=== PATIENT | female | born 1960 | race Native Hawaiian/Other Pacific Islander ===

== ENCOUNTER 2022-02-21 13:27 | Emergency (ER) | payer OTHER ==
--- OUTSIDE RECORDS SUMMARY | 2022-02-21 13:39 | EXTERNAL MEDICAL SUMMARY RPT | Continuity of Care Document ---
:1960 Author Organization [facility] Address [address] [place] [address] Phone Allergies and Intolerances date description facility type (no date) Formerly named [facility] (unknown) (no date) lisinopril [facility] (unknown) Encounters No information. Functional Status No information. Immunizations No information. Medications No information. Problems No information. Procedures No information. Results/Labs test date author facility value unit interpret ation Result panel 1 (unknown) (no (unknown) (unknown) (no value) (units (unk nown) date) unknown) (unknown) (no (unknown) (unknown) COVID-19 (units (u nknown) date) unknown) (unknown) (no (unknown) (unknown) 01/22/22 (units (unkno wn) date) unknown) (unknown) (no (unknown) (unknown) Age/Sex: 61 / F (units (unknown) date) Date of Service: unknown) (unknown) (no (unknown) (unknown) [place], [place] (units ( unknown) date) [id number] unknown) (unknown) (no (unknown) (unknown) Attending Dr: (units ( unknown) date) Too Taylor MD unknown) (unknown) (no (unknown) (unknown) : 1960 (units (unknown) date) Acct:[id number] unknown) (unknown) (no (unknown) (unknown) Dept at (units (unkno wn) date) . unknown) (unknown) (no (unknown) (unknown) Documented By: (units (unknown) date) Too Taylor MD unknown) 01/22/22 1135 (unknown) (no (unknown) (unknown) Draft (units (unkno wn) date) unknown) (unknown) (no (unknown) (unknown) Evaluation/Scree (units (unknown) date) michael for possible unknown) COVID-19 completed?: Yes- COVID-19 CPT (unknown) (no (unknown) (unknown) Intake Note: (units (u nknown) date) unknown) (unknown) (no (unknown) (unknown) Intake performed (units (unknown) date) by: Pete Barker unknown) (unknown) (no (unknown) (unknown) Intake (units (unkno wn) date) unknown) (unknown) (no (unknown) (unknown) Intake- Clincial (units (unknown) date) Staff unknown) (unknown) (no (unknown) (unknown) [facility] (units (unknown) date) unknown) (unknown) (no (unknown) (unknown) Loc: [facility] (units (unkno wn) date) unknown) (unknown) (no (unknown) (unknown) [phone] (units (unk nown) date) unknown) (unknown) (no (unknown) (unknown) Note (units (unkno wn) date) unknown) (unknown) (no (unknown) (unknown) Nurse Office (units (u nknown) date) Visit unknown) (unknown) (no (unknown) (unknown) Patient: (units (unkno wn) date) Ashley Del Rosario unknown) D MR#: (unknown) (no (unknown) (unknown) Pt came in for a (units (unknown) date) pre procedure unknown) covid test. Denied any covid symptoms. Explained (unknown) (no (unknown) (unknown) Reason For Visit (units (unknown) date) unknown) (unknown) (no (unknown) (unknown) Signed By: (units (unk nown) date) unknown) (unknown) (no (unknown) (unknown) This note may (units ( unknown) date) have been all or unknown) partially generated using voice recognition (unknown) (no (unknown) (unknown) Visit Reasons: (units (unknown) date) COVID/ WWMG unknown) (unknown) (no (unknown) (unknown) have occurred. (units (unknown) date) If there are any unknown) questions, please contact the Medical Records (unknown) (no (unknown) (unknown) may occur. (units (unk nown) date) Occasional unknown) wrong-word or 'sound-alike' substitutions may have (unknown) (no (unknown) (unknown) occurred due to (units (unknown) date) the inherent unknown) limitations of voice recognition software. Please (unknown) (no (unknown) (unknown) read the note (units ( unknown) date) carefully and unknown) recognize, using context, where these substitutions (unknown) (no (unknown) (unknown) software. (units (unkn own) date) Although every unknown) effort is made to edit content, education paraprofessional errors (unknown) (no (unknown) (unknown) test to pt. (units (un known) date) Tolerated covid unknown) test well. Result panel 2 (unknown) (no (unknown) (unknown) (no value) (units (unk nown) date) unknown) (unknown) (no (unknown) (unknown) COVID-19 (units (u nknown) date) unknown) (unknown) (no (unknown) (unknown) 01/22/22 1144 (units ( unknown) date) unknown) (unknown) (no (unknown) (unknown) 01/22/22 (units (unkno wn) date) unknown) (unknown) (no (unknown) (unknown) Age/Sex: 61 / F (units (unknown) date) Date of Service: unknown) (unknown) (no (unknown) (unknown) [facility] (units ( unknown) date) [id number] unknown) (unknown) (no (unknown) (unknown) Attending Dr: (units ( unknown) date) Too Taylor MD unknown) (unknown) (no (unknown) (unknown) : 1960 (units (unknown) date) Acct:[id number] unknown) (unknown) (no (unknown) (unknown) Dept at (units (unkno wn) date) . unknown) (unknown) (no (unknown) (unknown) Documented By: (units (unknown) date) Too Taylor MD unknown) 01/22/22 1135 (unknown) (no (unknown) (unknown) Evaluation/Scree (units (unknown) date) michael for possible unknown) COVID-19 completed?: Yes- COVID-19 CPT (unknown) (no (unknown) (unknown) Intake Note: (units (u nknown) date) unknown) (unknown) (no (unknown) (unknown) Intake performed (units (unknown) date) by: Pete Barker unknown) (unknown) (no (unknown) (unknown) Intake (units (unkno wn) date) unknown) (unknown) (no (unknown) (unknown) Intake- [facility]incial (units (unknown) date) Staff unknown) (unknown) (no (unknown) (unknown) [facility] (units (unknown) date) unknown) (unknown) (no (unknown) (unknown) Loc: [facility] (units (unkno wn) date) unknown) (unknown) (no (unknown) (unknown) [phone] (units (unk nown) date) unknown) (unknown) (no (unknown) (unknown) Note (units (unkno wn) date) unknown) (unknown) (no (unknown) (unknown) Nurse Office (units (u nknown) date) Visit unknown) (unknown) (no (unknown) (unknown) Patient: (units (unkno wn) date) Ashley Del Rosario unknown) D MR#: (unknown) (no (unknown) (unknown) Pt came in for a (units (unknown) date) pre procedure unknown) covid test. Denied any covid symptoms. Explained (unknown) (no (unknown) (unknown) Reason For Visit (units (unknown) date) unknown) (unknown) (no (unknown) (unknown) Signed By: (units (unk nown) date) <Electronically unknown) signed by Too Taylor MD> (unknown) (no (unknown) (unknown) Signed (units (unkno wn) date) unknown) (unknown) (no (unknown) (unknown) This note may (units ( unknown) date) have been all or unknown) partially generated using voice recognition (unknown) (no (unknown) (unknown) Visit Reasons: (units (unknown) date) COVID/ WWMG unknown) (unknown) (no (unknown) (unknown) have occurred. (units (unknown) date) If there are any unknown) questions, please contact the Medical Records (unknown) (no (unknown) (unknown) may occur. (units (unk nown) date) Occasional unknown) wrong-word or 'sound-alike' substitutions may have (unknown) (no (unknown) (unknown) occurred due to (units (unknown) date) the inherent unknown) limitations of voice recognition software. Please (unknown) (no (unknown) (unknown) read the note (units ( unknown) date) carefully and unknown) recognize, using context, where these substitutions (unknown) (no (unknown) (unknown) software. (units (unkn own) date) Although every unknown) effort is made to edit content, education paraprofessional errors (unknown) (no (unknown) (unknown) test to pt. (units (un known) date) Tolerated covid unknown) test well. Result panel 3 (unknown) (no date) (unknown) (unknown) Negative (units (unkn own) unknown) (unknown) (no date) (unknown) (unknown) Negative (units (unkn own) unknown) Result panel 4 (unknown) (no date) (unknown) (unknown) (no value) (units 191 39-5 unknown) (unknown) (no date) (unknown) (unknown) (no value) (units 226 33-2 unknown) (unknown) (no date) (unknown) (unknown) (no value) (units 226 34-0 unknown) (unknown) (no date) (unknown) (unknown) (no value) (units 226 36-5 unknown) (unknown) (no date) (unknown) (unknown) (no value) (units 226 37-3 unknown) (unknown) (no date) (unknown) (unknown) (no value) (units 495 60-6 unknown) (unknown) (no date) (unknown) (unknown) (no value) (units 527 97-8 unknown) (unknown) (no date) (unknown) (unknown) (no value) (units (un known) unknown) (unknown) (no date) (unknown) (unknown) (no value) (units (un known) unknown) (unknown) (no date) (unknown) (unknown) (no value) (units (un known) unknown) (unknown) (no date) (unknown) (unknown) (no value) (units (un known) unknown) (unknown) (no date) (unknown) (unknown) (no value) (units (un known) unknown) (unknown) (no date) (unknown) (unknown) (no value) (units (un known) unknown) (unknown) (no date) (unknown) (unknown) (no value) (units (un known) unknown) Result panel 5 (unknown) (no (unknown) (unknown) (no value) (units (unk nown) date) unknown) (unknown) (no (unknown) (unknown) (Synthroid) (units (un known) date) unknown) (unknown) (no (unknown) (unknown) (past 8 hours): (units (unknown) date) unknown) (unknown) (no (unknown) (unknown) 01/23/22 1309 (units ( unknown) date) unknown) (unknown) (no (unknown) (unknown) 01/23/22 (units (unkno wn) date) unknown) (unknown) (no (unknown) (unknown) 11:36 (units (unkno wn) date) unknown) (unknown) (no (unknown) (unknown) Age/Sex: 61 / F (units (unknown) date) unknown) (unknown) (no (unknown) (unknown) Allergies (units (unkn own) date) unknown) (unknown) (no (unknown) (unknown) Allergy/AdvReac (units (unknown) date) Type Severity unknown) Reaction Status Date / Time (unknown) (no (unknown) (unknown) Assessment + (units (u nknown) date) Plan narrative: unknown) (unknown) (no (unknown) (unknown) Assessment + (units (u nknown) date) Plan unknown) (unknown) (no (unknown) (unknown) Awake alert and (units (unknown) date) oriented x3, unknown) pupils equal round reactive to light, oropharynx (unknown) (no (unknown) (unknown) Blood Pressure (units (unknown) date) 113/71 unknown) (unknown) (no (unknown) (unknown) Chief complaint: (units (unknown) date) SCREENING unknown) COLONOSCOPY (unknown) (no (unknown) (unknown) Colon cancer (units (u nknown) date) screening for unknown) colonoscopy (unknown) (no (unknown) (unknown) Critical Care (units ( unknown) date) time: unknown) (unknown) (no (unknown) (unknown) : 1960 (units (unknown) date) Acct:[id number] unknown) (unknown) (no (unknown) (unknown) Date of Service: (units (unknown) date) 01/23/22 unknown) (unknown) (no (unknown) (unknown) Exam Narrative: (units (unknown) date) unknown) (unknown) (no (unknown) (unknown) Exam (units (unkno wn) date) unknown) (unknown) (no (unknown) (unknown) Family + Social (units (unknown) date) History unknown) (unknown) (no (unknown) (unknown) History + (units (unkn own) date) Physical Report unknown) (unknown) (no (unknown) (unknown) History of (units (unk nown) date) Present Illness unknown) (unknown) (no (unknown) (unknown) Home Medications (units (unknown) date) and Allergies unknown) (unknown) (no (unknown) (unknown) Home Medications (units (unknown) date) unknown) (unknown) (no (unknown) (unknown) I spent a total (units (unknown) date) of [] minutes of unknown) critical care time on this patient's care (unknown) (no (unknown) (unknown) [facility] (units (unknown) date) [address] [place] [address] unknown) [place] [address] (unknown) (no (unknown) (unknown) [id number] (units (unk nown) date) unknown) (unknown) (no (unknown) (unknown) Medication (units (unk nown) date) Instructions unknown) Recorded Confirmed Type (unknown) (no (unknown) (unknown) Meds (units (unkno wn) date) unknown) (unknown) (no (unknown) (unknown) Narrative (units (unkn own) date) unknown) (unknown) (no (unknown) (unknown) Narrative: (units (unk nown) date) unknown) (unknown) (no (unknown) (unknown) Negative (units (unkno wn) date) unknown) (unknown) (no (unknown) (unknown) Oxygen Delivery (units (unknown) date) Method Room Air unknown) (unknown) (no (unknown) (unknown) Patient History (units (unknown) date) unknown) (unknown) (no (unknown) (unknown) Patient: (units (unkno wn) date) Ashley Del Rosario unknown) D MR#: (unknown) (no (unknown) (unknown) Provider: (units (unkn own) date) Antonio Olsen unknown) (unknown) (no (unknown) (unknown) Pulse Oximetry (units (unknown) date) 97 unknown) (unknown) (no (unknown) (unknown) Pulse Rate 94 H (units (unknown) date) unknown) (unknown) (no (unknown) (unknown) Respiratory Rate (units (unknown) date) 20 unknown) (unknown) (no (unknown) (unknown) Review of (units (unkn own) date) Systems unknown) (unknown) (no (unknown) (unknown) Signed (units (unkno wn) date) By:<Electronicall unknown) y signed by Antonio Olsen MD> (unknown) (no (unknown) (unknown) Smoking Status (units (unknown) date) Former smoker unknown) (unknown) (no (unknown) (unknown) Social History: (units (unknown) date) unknown) (unknown) (no (unknown) (unknown) Substance Use (units ( unknown) date) Type does not use unknown) (unknown) (no (unknown) (unknown) Temperature 97 F (units (unknown) date) L unknown) (unknown) (no (unknown) (unknown) Time Spent With (units (unknown) date) Patient unknown) (unknown) (no (unknown) (unknown) Tobacco + (units (unkn own) date) Substance use: unknown) (unknown) (no (unknown) (unknown) Vital Signs (units (un known) date) unknown) (unknown) (no (unknown) (unknown) abdomen (units (unkno wn) date) nontender and unknown) nondistended, extremities without edema, no gross (unknown) (no (unknown) (unknown) alcohol intake (units (unknown) date) frequency unknown) holiday/special occasion (unknown) (no (unknown) (unknown) aspirin AdvReac (units (unknown) date) Intermediate unknown) broken Verified 01/23/22 11:27 (unknown) (no (unknown) (unknown) atorvastatin 20 (units (unknown) date) mg tablet 20 mg unknown) 1XD 01/23/22 01/23/22 History (unknown) (no (unknown) (unknown) atorvastatin 20 (units (unknown) date) mg tablet 20 mg unknown) PO DAILY 01/23/22 01/23/22 History (unknown) (no (unknown) (unknown) blood (units (unkno wn) date) unknown) (unknown) (no (unknown) (unknown) bupropion HCl (units ( unknown) date) 150 mg 24 hr unknown) tablet, 150 mg PO 1XD 01/23/22 01/23/22 History (unknown) (no (unknown) (unknown) cetirizine 10 mg (units (unknown) date) tablet 10 mg 1XD unknown) 01/23/22 01/23/22 History (unknown) (no (unknown) (unknown) clear, heart (units (u nknown) date) regular rate and unknown) rhythm, lungs clear to auscultation bilaterally, (unknown) (no (unknown) (unknown) estradiol 1 mg (units (unknown) date) tablet 1 mg 1XD unknown) 01/23/22 01/23/22 History (unknown) (no (unknown) (unknown) extended release (units (unknown) date) unknown) (unknown) (no (unknown) (unknown) gold AdvReac (units (u nknown) date) Intermediate Rash unknown) Uncoded 01/23/22 11:27 (unknown) (no (unknown) (unknown) household (units (unkn own) date) members spouse unknown) (unknown) (no (unknown) (unknown) levothyroxine 50 (units (unknown) date) mcg tablet 50 mcg unknown) 1XD 01/23/22 01/23/22 History (unknown) (no (unknown) (unknown) levothyroxine 50 (units (unknown) date) mcg tablet 50 mcg unknown) PO DAILY 01/23/22 01/23/22 History (unknown) (no (unknown) (unknown) lisinopril (units (unk nown) date) AdvReac unknown) Intermediate Cough Verified 01/23/22 11:27 (unknown) (no (unknown) (unknown) losartan 100 25 (units (unknown) date) tab 1XD 01/23/22 unknown) 01/23/22 History (unknown) (no (unknown) (unknown) meloxicam 15 mg (units (unknown) date) tablet 15 mg 1XD unknown) 01/23/22 01/23/22 History (unknown) (no (unknown) (unknown) metformin 500 mg (units (unknown) date) tablet,extended unknown) 1,000 mg PO 1-2XD 01/23/22 01/23/22 History (unknown) (no (unknown) (unknown) mg-hydrochloroth (units (unknown) date) iazide 25 mg unknown) tablet (unknown) (no (unknown) (unknown) neurologic (units (unk nown) date) deficits noted unknown) (unknown) (no (unknown) (unknown) omeprazole 20 mg (units (unknown) date) capsule,delayed unknown) 20 mg PO DAILY 01/23/22 01/23/22 History (unknown) (no (unknown) (unknown) release 24 hr (units ( unknown) date) unknown) (unknown) (no (unknown) (unknown) release (units (unkno wn) date) unknown) (unknown) (no (unknown) (unknown) today; this time (units (unknown) date) is exclusive of unknown) procedural time. (unknown) (no (unknown) (unknown) vessels (units (unkno wn) date) unknown) Result panel 6 (unknown) (no (unknown) (unknown) (no value) (units (unk nown) date) unknown) (unknown) (no (unknown) (unknown) (units (unknown) date) unknown) (unknown) (no (unknown) (unknown) Performed at: (units (unknown) date) 01 unknown) (unknown) (no (unknown) (unknown) . 01 (units (unkno wn) date) unknown) (unknown) (no (unknown) (unknown) . (units (unkno wn) date) unknown) (unknown) (no (unknown) (unknown) /CPE 01/24/2022 (units (unknown) date) 0650 Local unknown) (unknown) (no (unknown) (unknown) 1.0 x 0.5 x 0.1 (units (unknown) date) cm submitted unknown) entirely in 1 cassette(s) (unknown) (no (unknown) (unknown) [facility] [facility] (units (unknown) date) unknown) (unknown) (no (unknown) (unknown) [address] (units (unknown) date) [address], unknown) [place], [place] [id number] (unknown) (no (unknown) (unknown) [id number] (units (unknown) date) unknown) (unknown) (no (unknown) (unknown) A. Cecum, Polyp, (units (unknown) date) Biopsy: unknown) (unknown) (no (unknown) (unknown) [place], [place] (units ( unknown) date) [address] unknown) (unknown) (no (unknown) (unknown) B. Sigmoid (units (unk nown) date) Colon, Polyp, unknown) Biopsy: (unknown) (no (unknown) (unknown) CPT . (units (unkno wn) date) unknown) (unknown) (no (unknown) (unknown) Clinical (units (unkno wn) date) history: . unknown) (unknown) (no (unknown) (unknown) Collection Date: (units (unknown) date) 01/23/22 unknown) (unknown) (no (unknown) (unknown) D12.2, D12.5 (units (u nknown) date) unknown) (unknown) (no (unknown) (unknown) DD/ (units (unknown) date) 0000 unknown) (unknown) (no (unknown) (unknown) Date of : (units (unknown) date) 1960 Admit unknown) Date: 01/23/22 (unknown) (no (unknown) (unknown) Diagnosis: (units (unk nown) date) unknown) (unknown) (no (unknown) (unknown) Dictated By: (units (u nknown) date) Olivia Sommer unknown) (unknown) (no (unknown) (unknown) Electronically (units (unknown) date) signed: . unknown) (unknown) (no (unknown) (unknown) Gross (units (unkno wn) date) description: . unknown) (unknown) (no (unknown) (unknown) Hyperplastic (units (u nknown) date) polyp. unknown) (unknown) (no (unknown) (unknown) [facility] (units (unknown) date) unknown) (unknown) (no (unknown) (unknown) Olivia Ayers (units (unk nown) date) MD Ros, unknown) Pathologist (unknown) (no (unknown) (unknown) [facility] Accession (units ( unknown) date) Number: unknown) [id number] (unknown) (no (unknown) (unknown) [facility] (units (unknown) date) [place] [facility] unknown) (unknown) (no (unknown) (unknown) MD Wolf (units (unkn own) date) Jaden CHRISTIE Phone: unknown) [phone] (unknown) (no (unknown) (unknown) (units (unknown) date) Dictating Dr: unknown) Olivia Sommer MD (unknown) (no (unknown) (unknown) MRV 01/25/2022 (units (unknown) date) 1124 Local unknown) (unknown) (no (unknown) (unknown) Material (units (unkno wn) date) submitted: . unknown) (unknown) (no (unknown) (unknown) I- [id number] (units (unknown) date) unknown) (unknown) (no (unknown) (unknown) Ordering (units (unkno wn) date) Physician: unknown) Antonio Olsen MD (unknown) (no (unknown) (unknown) PART A: colon - (units (unknown) date) 'CECAL POLYP' unknown) (unknown) (no (unknown) (unknown) PART B: colon - (units (unknown) date) 'SIGMOID COLON unknown) POLYP' (unknown) (no (unknown) (unknown) Part A: 'CECAL (units (unknown) date) POLYP': unknown) (unknown) (no (unknown) (unknown) Part B: 'SIGMOID (units (unknown) date) COLON POLYP': unknown) (unknown) (no (unknown) (unknown) Pathologist (units (un known) date) provided ICD-10: unknown) (unknown) (no (unknown) (unknown) Pathology (units (unkn own) date) Diagnostic Report unknown) (unknown) (no (unknown) (unknown) Patient name: (units ( unknown) date) Ashley Del Rosario unknown) D (unknown) (no (unknown) (unknown) Received in (units (un known) date) formalin are unknown) multiple fragment(s) of parra, soft tissue (unknown) (no (unknown) (unknown) Received in (units (un known) date) formalin is 1 unknown) fragment(s) of parra, soft tissue measuring (unknown) (no (unknown) (unknown) SCREENING (units (unkn own) date) COLONOSCOPY unknown) (unknown) (no (unknown) (unknown) Sessile serrated (units (unknown) date) adenoma. unknown) (unknown) (no (unknown) (unknown) Signed By: (units (unk nown) date) 01/25/22 1507 unknown) (unknown) (no (unknown) (unknown) Signed (units (unkno wn) date) unknown) (unknown) (no (unknown) (unknown) TD/TT: 01/25/22 (units (unknown) date) 1507 unknown) (unknown) (no (unknown) (unknown) Tubular adenoma. (units (unknown) date) unknown) (unknown) (no (unknown) (unknown) cassette(s) (units (un known) date) unknown) (unknown) (no (unknown) (unknown) measuring 2.0 x (units (unknown) date) 0.7 x 0.1 cm in unknown) aggregate submitted entirely in 1 Result panel 7 (unknown) (no (unknown) (unknown) (no value) (units (unk nown) date) unknown) (unknown) (no (unknown) (unknown) 01/23/22 1349 (units ( unknown) date) unknown) (unknown) (no (unknown) (unknown) 1 of 2 polyps (units ( unknown) date) were retrieved unknown) (unknown) (no (unknown) (unknown) A 4 mm sessile (units (unknown) date) polyp was removed unknown) from the cecum using cold snare and retrieved. (unknown) (no (unknown) (unknown) Age/Sex: 61 / F (units (unknown) date) unknown) (unknown) (no (unknown) (unknown) Colon cancer (units (u nknown) date) screening. unknown) Personal history of colon polyps. Family history of (unknown) (no (unknown) (unknown) Colonoscopy Note (units (unknown) date) unknown) (unknown) (no (unknown) (unknown) Colonoscopy with (units (unknown) date) snare polypectomy unknown) (unknown) (no (unknown) (unknown) Complications: (units (unknown) date) other (EBL unknown) minimal. No complications) (unknown) (no (unknown) (unknown) : 1960 (units (unknown) date) Acct:[id number] unknown) (unknown) (no (unknown) (unknown) JESÚS and perianal (units (unknown) date) examinations were unknown) unremarkable. Retroflexion in the rectum was (unknown) (no (unknown) (unknown) Date of Service: (units (unknown) date) 01/23/22 unknown) (unknown) (no (unknown) (unknown) Date of (units (unkno wn) date) procedure: unknown) 01/23/22 (unknown) (no (unknown) (unknown) Discharge home (units (unknown) date) with escort unknown) (unknown) (no (unknown) (unknown) Follow-up (units (unkn own) date) pathology results unknown) (unknown) (no (unknown) (unknown) Impression: (units (un known) date) unknown) (unknown) (no (unknown) (unknown) Indications: (units (u nknown) date) unknown) (unknown) (no (unknown) (unknown) [facility] (units (unknown) date) [address] [place] [address] Street unknown) [place] [address] (unknown) (no (unknown) (unknown) [id number] (units (unk nown) date) unknown) (unknown) (no (unknown) (unknown) Operative (units (unkn own) date) Date/Time/Diagnos unknown) es (unknown) (no (unknown) (unknown) Patient has a (units ( unknown) date) contact number unknown) available for emergencies. The signs and symptoms (unknown) (no (unknown) (unknown) Patient: (units (unkno wn) date) Ashley Del Rosario unknown) D MR#: (unknown) (no (unknown) (unknown) Plan for (units (unkno wn) date) aftercare: unknown) (unknown) (no (unknown) (unknown) Post-procedure (units (unknown) date) unknown) (unknown) (no (unknown) (unknown) Prior to the (units (u nknown) date) procedure, unknown) history and physical was performed, and patient (unknown) (no (unknown) (unknown) Procedure + (units (un known) date) Clinicians unknown) (unknown) (no (unknown) (unknown) Procedure Notes (units (unknown) date) unknown) (unknown) (no (unknown) (unknown) Procedure in (units (u nknown) date) detail: unknown) (unknown) (no (unknown) (unknown) Provider: (units (unkn own) date) Antonio Olsen unknown) (unknown) (no (unknown) (unknown) Repeat (units (unkno wn) date) colonoscopy at a unknown) date to be determined based on pathology results (unknown) (no (unknown) (unknown) Resume home (units (un known) date) medications unknown) (unknown) (no (unknown) (unknown) Resume previous (units (unknown) date) diet unknown) (unknown) (no (unknown) (unknown) Signed (units (unkno wn) date) By:<Electronicall unknown) y signed by Antonio Olsen MD> (unknown) (no (unknown) (unknown) Study performed: (units (unknown) date) unknown) (unknown) (no (unknown) (unknown) Three 4 mm (units (unk nown) date) polyps removed unknown) from the sigmoid colon and cecum, partial retrieval (unknown) (no (unknown) (unknown) Two 4 mm sessile (units (unknown) date) polyps were unknown) removed from the sigmoid colon using a cold snare, (unknown) (no (unknown) (unknown) and oxygen (units (unk nown) date) saturations were unknown) monitored continuously. The colonoscope was (unknown) (no (unknown) (unknown) appendiceal (units (un known) date) orifice and unknown) ileocecal valve. The patient tolerated the procedure (unknown) (no (unknown) (unknown) assessment was (units (unknown) date) reviewed. Patient unknown) identification and proposed procedure were (unknown) (no (unknown) (unknown) colon polyps. (units ( unknown) date) Last colonoscopy unknown) was done in 2012. (unknown) (no (unknown) (unknown) direct vision. (units (unknown) date) Throughout the unknown) procedure, the patient's blood pressure, pulse, (unknown) (no (unknown) (unknown) introduced (units (unk nown) date) through the anus unknown) and advanced to the cecum as identified by the (unknown) (no (unknown) (unknown) medications and (units (unknown) date) allergies were unknown) reviewed. Preprocedure nursing history and (unknown) (no (unknown) (unknown) normal (units (unkno wn) date) activities unknown) tomorrow. Written discharge instructions were provided to the (unknown) (no (unknown) (unknown) obtained (units (unkno wn) date) including risks, unknown) benefits, and alternatives, the scope was passed under (unknown) (no (unknown) (unknown) of potential (units (u nknown) date) delayed unknown) complications were discussed with the patient. Return to (unknown) (no (unknown) (unknown) of the patient (units (unknown) date) was reassessed unknown) after the procedure. After informed consent was (unknown) (no (unknown) (unknown) patient. (units (unkno wn) date) unknown) (unknown) (no (unknown) (unknown) unrevealing. (units (u nknown) date) unknown) (unknown) (no (unknown) (unknown) verified by the (units (unknown) date) physician and unknown) nurse in the procedure room. The physical status (unknown) (no (unknown) (unknown) well. Bowel prep (units (unknown) date) was deemed unknown) adequate to detect polyps greater than 5 mm. Social History No information. Vital Signs No information.
[2022-02-21 13:48] LABS: BASOPHILS # (AUTO) 0.1 10^3/uL (0.0-0.1); BASOPHILS % (AUTO) 0.6 %; EOSINOPHILS # (AUTO) 0.7 10^3/uL (0.0-0.7); EOSINOPHILS % (AUTO) 5.7 %; HCT - HEMATOCRIT 24.1 % (37.0-47.0); HGB - HEMOGLOBIN 8.1 g/dL (12.0-16.0); LYMPHOCYTES # (AUTO) 1.2 10^3/uL (1.5-3.5); LYMPHOCYTES % (AUTO) 9.9 %; MEAN CORPUSCULAR HEMOGLOBIN 29.9 pg (27.0-31.0); MEAN CORPUSCULAR HGB CONC 33.6 g/dL (32.0-36.0); MEAN CORPUSCULAR VOLUME 88.9 fL (81.0-99.0); MEAN PLATELET VOLUME 7.7 fL (7.9-10.8); MONOCYTES % (AUTO) 8.2 %; NEUTROPHILS # (AUTO) 8.8 10^3/uL (1.5-6.6); NEUTROPHILS % (AUTO) 74.7 %; PLT - PLATELET COUNT 593 10^3/uL (130-450); RED BLOOD COUNT 2.71 10^6/uL (4.20-5.40); WHITE BLOOD COUNT 11.7 x10^3/uL (4.8-10.8)
--- NOTE | 2022-02-21 13:55 | XRAY Report ---
PROCEDURE: Chest 1 View X-Ray INDICATIONS: Chest Pain TECHNIQUE: One view of the chest was acquired. COMPARISON: None FINDINGS: Surgical changes and devices: None. Lungs and pleura: No pleural effusions or pneumothorax. No evidence of pneumonia nor edema. 18 mm ro unded density projects over the right lung base. Mediastinum: Mediastinal contours appear normal. Heart size is normal. Bones and chest wall: No suspicious bony lesions. Overlying soft tissues appear unremarkable. IMPRESSION: 1. No acute process. 2. Nodular density projecting over the right lung base. Further assessment with IV contrast-enhanced CT is recommended. Reviewed by: Gume Bruno MD on 02/21/2022 1:53 PM PDT Approved by: Gume Bruno MD on 02/21/2022 1:53 PM PDT Station ID: [id number]
[2022-02-21 14:10] LABS: ALBUMIN 4.2 g/dL (3.2-5.5); ALBUMIN/GLOBULIN RATIO 1.3 (1.0-2.2); BILIRUBIN,TOTAL 0.6 mg/dL (0.2-1.0); CALCIUM 9.9 mg/dL (8.5-10.3); CREATININE 1.3 mg/dL (0.4-1.0); POTASSIUM 3.4 mmol/L (3.5-5.0); TOTAL PROTEIN 7.5 g/dL (6.7-8.2)
[2022-02-21] MEDS: SODIUM CHLORIDE 0.9% 1,000 ML IV STA (14:32)
--- NOTE | 2022-02-21 14:39 | ED Physician Documentation ---
History of Present Illness - Stated complaint Stated Complaint: RAPID HR/TROUBLE BREATHING - Chief complaint Chief Complaint: Cardiac - Additonal information Additional information: 61-year-old female presents to the emergency department for evaluation of exertional dyspnea and near syncope that has been ongoing for about 2 weeks. She often reports that she has to stop and rest. She has to sit for a long time before she recovers her breath back. She also began having some left-sided chest pain with radiation to her left arm today. She also is endorsing a headache and neck pain. No fevers. She is a former smoker quitting about 5 years ago. She reports that she had a colonoscopy on 23 January that showed some precancerous cells. Past medical history most significant for hypertension, diabetes and hypothyroid. Meds: Statin, metformin, estradiol, Synthroid, hydrochlorothiazide, losartan, Zyrtec, Prilosec Review of Systems Constitutional: denies: Fever, Chills Ears: reports: Reviewed and negative Throat: reports: Reviewed and negative Cardiac: reports: Chest pain / pressure, Palpitations. denies: Pedal edema Respiratory: reports: Reviewed and negative GI: reports: Reviewed and negative : reports: Reviewed and negative Skin: reports: Reviewed and negative Musculoskeletal: reports: Reviewed and negative Neurologic: reports: Near syncope Psychiatric: reports: Reviewed and negative PD PAST MEDICAL HISTORY - Past Medical History Cardiovascular: Hypertension, High cholesterol, Coronary artery disease Endocrine/Autoimmune: Type 2 diabetes GI: GERD : None Psych: Depression, Anxiety Musculoskeletal: Osteoarthritis - Past Surgical History /CLINICAL APPLICATION CONSULTANT: Hysterectomy - Present Medications Home Medications: Ambulatory Orders Medication Instructions Recorded Confirmed Atorvastatin Calcium [Lipitor] 20 mg PO 10/28/12 10/28/12 Cetirizine HCl [Zyrtec] 10 mg PO 10/28/12 10/28/12 Exenatide [Byetta] 5 mcg SQ 10/28/12 10/28/12 Fenofibrate Nanocrystallized 145 mg PO 10/28/12 10/28/12 [Tricor] Hydrochlorothiazide 25 mg PO 10/28/12 10/28/12 Losartan Potassium [Cozaar] 50 mg PO 10/28/12 10/28/12 Meloxicam [Mobic] 15 mg PO DAILY 10/28/12 10/28/12 Metformin HCl [Metformin HCl ER] 500 mg PO 10/28/12 10/28/12 Omeprazole [PriLOSEC] 20 mg PO DAILY 10/28/12 10/28/12 buPROPion [Wellbutrin Xl] 150 mg PO 10/28/12 10/28/12 estradioL [Estrace] 1 mg PO DAILY 10/28/12 10/28/12 raNITIdine HCl [Zantac] 150 PO PRN 10/28/12 10/28/12 Losartan [Cozaar] 50 mg PO DAILY 10/29/12 10/29/12 - Allergies Allergies/Adverse Reactions: Allergies Allergy/AdvReac Type Severity Reaction Status Date / Time Salicylates * [Salicylates] Allergy Unknown capillaries Verified 10/28/12 14:56 burst lisinopril AdvReac Mild cough Verified 10/28/12 14:54 PD ED PE NORMAL - General General: Alert and oriented X 3, No acute distress, Well developed/nourished - HEENT HEENT: Atraumatic, Moist mucous membranes, Pharynx benign - Neck Neck: Supple, no meningeal sign - Cardiac Cardiac: RRR (Mild tachycardia at rest heart rate 108), No murmur, No gallop, Strong equal pulses - Respiratory Respiratory: No respiratory distress, Clear bilaterally - Abdomen Abdomen: Normal bowel sounds, Soft, Non tender - Rectal Rectal: Other (Chiquita melena on digital rectal exam) - Back Back: No CVA TTP, No spinal TTP - Derm Derm: Normal color, Warm and dry - Extremities Extremities: No deformity, No tenderness to palpate, Normal ROM s pain - Neuro Neuro: Alert and oriented X 3, dramatic reader 2-12 intact Eye Opening: Spontaneous Motor: Obeys Commands Verbal: Oriented GCS Score: 15 Results - Vitals Vitals: Vital Signs - 24 hr 02/21/22 02/21/22 02/21/22 13:46 14:21 14:30 Temperature 37.8 C Heart Rate 108 H 109 H 108 H Heart Rate [ Sitting] Heart Rate [ Standing] Heart Rate [ Supine] Respiratory 30 H 18 18 Rate Blood Pressure 105/76 121/67 99/74 Blood Pressure [Sitting] Blood Pressure [Standing] Blood Pressure [Supine] O2 Saturation 95 100 99 02/21/22 02/21/22 02/21/22 15:00 15:23 16:30 Temperature Heart Rate 106 H 104 H Heart Rate [ 105 H Sitting] Heart Rate [ 112 H Standing] Heart Rate [ 104 H Supine] Respiratory 12 18 Rate Blood Pressure 116/69 98/67 Blood Pressure 112/69 [Sitting] Blood Pressure 121/70 [Standing] Blood Pressure 114/68 [Supine] O2 Saturation 100 100 Oxygen O2 Source Room air - EKG (time done) 1333 Rate: Rate (enter#) (106) Rhythm: Sinus tachycardia [place]: Normal Intervals: Normal [place]. No: Prolonged QT QRS: Poor R wave progression Ischemia: Q waves (inferior lead) Compare to prior EKG: Old EKG unavailable Computer interpretation: Agree with computer - Labs Labs: Microbiology 02/21/22 15:48 Occult Blood - Final Stool Laboratory Tests 02/21/22 02/21/22 02/21/22 13:41 13:44 13:44 WBC 11.7 H RBC 2.71 L Hgb 8.1 L Hct 24.1 L MCV 88.9 MCH 29.9 MCHC 33.6 RDW 12.0 Plt Count 593 H MPV 7.7 L Neut # (Auto) 8.8 H Lymph # (Auto) 1.2 L [place] # (Auto) 1.0 Eos # (Auto) 0.7 Baso # (Auto) 0.1 Absolute Nucleated RBC 0.00 Nucleated RBC % 0.0 Sodium 134 L Potassium 3.4 L Chloride 96 L Carbon Dioxide 21 Anion Gap 17.0 H BUN 27 H Creatinine 1.3 H Estimated GFR (MDRD) 42 L Glucose 179 H Calcium 9.9 Total Bilirubin 0.6 AST 20 ALT 15 Alkaline Phosphatase 51 Troponin I High Sens B-Natriuretic Peptide Total Protein 7.5 Albumin 4.2 Globulin 3.3 Albumin/Globulin Ratio 1.3 Lipase 28 TSH 3.20 Thyroxine (T4) 13.84 H 02/21/22 02/21/22 13:44 13:44 WBC RBC Hgb Hct MCV MCH MCHC RDW Plt Count MPV Neut # (Auto) Lymph # (Auto) [place] # (Auto) Eos # (Auto) Baso # (Auto) Absolute Nucleated RBC Nucleated RBC % Sodium Potassium Chloride Carbon Dioxide Anion Gap BUN Creatinine Estimated GFR (MDRD) Glucose Calcium Total Bilirubin AST ALT Alkaline Phosphatase Troponin I High Sens 9.3 B-Natriuretic Peptide < 5 L Total Protein Albumin Globulin Albumin/Globulin Ratio Lipase TSH Thyroxine (T4) - Rads (name of study) cxr Radiology: Final report received (No acute process. Nodular density projecting over the right lung base further assessment with IV contrast CT is recommended) CT head Radiology: Final report received (No acute intracranial process. Marked enlargement of partially visualized parotid glands bilaterally. No focal fluid collections are identified. Recommend CT neck with contrast) CT chest Radiology: Final report received (Multiple bilateral pulmonary nodules including extensive mediastinal and supraclavicular adenopathy highly suspicious for malignancy. Slight deformity of the left lateral 10th rib possibly related to old trauma however given above findings close interval follow-up recommended.) Ct abd Radiology: Final report received (Tiny 3 mm hypodensity in right hepatic lobe too small to characterize. Hepatic steatosis. Multiple well circumcised hypodensities in bilateral renal parenchyma likely represent cysts. No hydronephrosis. No bowel obstruction or abnormal wall thickening. ) PD MEDICAL DECISION MAKING - ED course Complexity details: reviewed results, re-evaluated patient, considered differential, d/w patient ED course: 61-year-old female presents emergency department for evaluation of worsening shortness of air and dyspnea over the last 3 weeks. Reports multiple episodes of near syncope. Also reporting melena. She does have a history of former tobacco use. In the emergency department initial CBC showed a marked anemia with a hemoglobin of 8. No recent hemoglobin for comparison. However I stool guaiac was positive for blood as well as chiquita melena. The initial x-ray of the chest suggested a nodule in the right lower lobe of the lung. Given the melena and concern for malignancy a CT of the chest abdomen pelvis was completed with contrast. Multiple bilateral pulmonary nodules as well as extensive supraclavicular lymphadenopathy likely representing metastatic disease. CT of the abdomen did show some densities within the liver that were too small to characterize but could also be compatible with early cancer. Here in the emergency department patient was given a liter of fluid. She did not have any orthostatic hypotension. While here in the emergency department she has been hemodynamically stable with mild tachycardia with a resting heart rate of about 108. Given the melena and anemia she likely needs an urgent EGD. We are unable to accommodate that here at [facility] as we have no surgical services through the weekend. I did offer the patient the opportunity to remain in the ER to transfer for 4 EGD imaging though she declined. She does have follow-up scheduled with her primary doctor tomorrow. At that time she will request an urgent EGD referral. We also discussed the importance of emergent referral for hematology and oncology. If at any point her symptoms worsen, she has fainting episodes she will return immediately to the ER. Departure - Departure Disposition: 01 Home, Self Care Clinical Impression: Parotid gland enlargement, Melena, Pulmonary nodules/lesions, multiple Anemia Qualifiers: Anemia type: other cause Other causes of anemia: other cause, not classified Qualified Code(s): D64.89 - Other specified anemias Chronic kidney disease Qualifiers: Chronic kidney disease stage: stage 3 (moderate) Chronic kidney disease stage 3 subtype: unspecified whether 3a or 3b Qualified Code(s): N18.30 - Chronic kidney disease, stage 3 unspecified Comments: Ashley you were seen today in the emergency department because you have been getting short of breath, having chest pain feeling dizzy. You have also reported black stools. Today your hemoglobin is 8. Your stool guaiac is positive. This likely indicates that you have upper stomach or upper intestinal bleeding. You need an emergent EGD in order to further diagnose this problem. The low hemoglobin is the most likely cause of the worsening shortness of air and dizziness over the last few weeks. The CT of your chest unfortunately showed multiple pulmonary nodules as well As enlarged lymph nodes which are concerning for cancer. You need an emergent referral to hematology/oncology. Both your parotid glands were seen to be enlarged on CT. The recommendation is for you to have further evaluation of this with an outpatient CT of your neck with contrast. If at any point you find that your symptoms are worsening, you develop any fainting episodes, have severe chest pain or worsening shortness of air you should come immediately to the ER
[2022-02-21 15:01] LABS: T4 (THYROXINE) 13.84 ug/dL (6.09-12.23)
[2022-02-21 15:05] LABS: THYROID STIMULATING HORMONE 3.2 uIU/mL (0.34-5.60)
--- NOTE | 2022-02-21 16:21 | CT Report ---
PROCEDURE: HEAD WO INDICATIONS: headace TECHNIQUE: Noncontrast 4.5 mm thick angled axial sections acquired from the foramen magnum to the vertex. For r adiation dose reduction, the following was used: automated exposure control, adjustment of mA and/or kV according to patient size. COMPARISON: None. FINDINGS: Image quality: Excellent. CSF spaces: Basal cisterns are patent. No extra-axial fluid collections. Ventricles are normal in size and shape. Brain: No midline shift. No intracranial masses or hemorrhage. Brady-white matter interface is norm al. Skull and face: Calvarium and visualized facial bones are intact, without suspicious lesions. There is incomplete visualization of the parotid glands bilaterally. However, they are markedly enlarged. Sinuses: Visualized sinuses and mastoids are clear. IMPRESSION: Marked enlargement of partially visualized parotid glands bilaterally. No focal fluid collections are identified. CT neck with contrast is recommended for further evaluation. No acute intracranial process. Reviewed by: Sunitha Townsend MD on 02/21/2022 4:19 PM PDT Approved by: Sunitha Townsend MD on 02/21/2022 4:19 PM PDT Station ID: [id number]
--- NOTE | 2022-02-21 16:40 | CT Report ---
PROCEDURE: CHEST W INDICATIONS: RLL DENSITY CONTRAST: IV CONTRAST: Optiray 320 ml: 100 PO CONTRAST: *NO PO CONTRAST TECHNIQUE: After the administration of intravenous contrast, 1 mm axial images were acquired from the pulmonary apices through the posterior costophrenic angles. Axial 5 mm soft tissue kernel reconstructions were performed as well as 8 mm axial MIP and coronal and sagittal 5 mm reformations. For radiation dose reduction, the following was used: automated exposure control, adjustment of mA and/or kV according to patient size. COMPARISON: CT abdomen pelvis 02/21/2022, chest x-ray 02/21/2022 FINDINGS: Image quality: Excellent. Lungs and pleura: No acute air space opacities. No pleural effusions or pneumothorax. Central and peripheral airways are patent and normal in caliber. Left upper lobe nodule, 9 mm series 3 image 81. 5 mm right upper lobe nodule series 3 image 101. Juxt a fissural nodule measuring 7 mm in the right midlung field series 3 image 135. Anterior right middle lobe nodule measuring 5 mm series 3 image 174. Anterior right lower lobe nodule 1.7 cm series 3 imag e 175. Medial right middle lobe nodule 5 mm series 3 image 193. Right lower lobe posterior nodule 7 m m series 3 image 172 as well as adjacent 3 mm nodule on series 3 image 169. 2 mm nodule in the medial right lower lobe series 3 image 181. 3 mm right lower lobe nodule series 3 image 152. Scattered 2 to 5 mm nodules are present in the left lower lobe series 3 images 159 06/26/1967. 7 mm left lower lobe n odule medially series 3 image 137. 5 mm lingular nodule series 3 image 137. 4 mm nodule left upper lo be series 3 image 124. 4 mm left upper lobe nodule series 3 image 118. 6 mm left upper lobe nodule se james 3 image 79. Mediastinum: Heart size is normal. No pericardial effusion. There is extensive mediastinal adenopat hy. A superior anterior right paratracheal low-attenuation lymph node is present measuring 1.2 cm on series 2 image 8. A precarinal lymph node on series 2 image 21, also low attenuation measures 2.5 cm. Subcarinal low-attenuation lymph node is present measuring 2.4 cm on series 2 image 27. Enlarged aor ticopulmonary window lymph nodes are also identified. Or clavicular adenopathy is present, the larges t on the right measuring 2.8 cm on series 2 image 5. Thoracic aorta and central pulmonary arteries ar e normal in size. Esophagus is normal in caliber. No hiatal hernia. Bones and chest wall: There is slight deformity of the lateral left 10th rib. No vertebral body compr ession fractures. No axillary or supraclavicular adenopathy by size criteria. The thyroid is normal in size and there are no incidental findings.. Abdomen: Low-attenuation foci are present within the kidneys bilaterally, the largest on the right m easuring 1.8 cm. Soft tissue nodule in the anterior left abdominal subcutaneous fat is present measur ing 9 mm on series 2 image 59. Visualized upper abdominal solid organs appear normal. Upper abdomina l bowel loops are normal in caliber. IMPRESSION: Multiple bilateral pulmonary nodules including extensive mediastinal and supraclavicular adenopathy h ighly suspicious for malignancy. Slight deformity of the left lateral 10th rib possibly related to old trauma. However, given above fi ndings, close interval follow-up attention this region is recommended to exclude presence of osseous metastatic disease. Low-attenuation foci within the kidneys, liver, as well as soft tissue nodule in the abdominal subcut aneous fat. Please see CT evident pelvis report for further details. Punctate focus of low-attenuatio n is noted within the liver on series 2 image 49. CLINICAL RECOMMENDATION STATEMENTS: In patients <35 years with an ITN detected on CT, MRI, or extrathyroidal ultrasound, the Committee re commends further evaluation with dedicated thyroid ultrasound if the nodule is "e1 cm and has no susp icious imaging features, and if the patient has normal life expectancy. In patients "e35 years with an ITN detected on CT, MRI, or extrathyroidal ultrasound, the Committee r ecommends further evaluation with dedicated thyroid ultrasound if the nodule is "e1.5 cm and has no s uspicious imaging features, and if the patient has normal life expectancy. (ACR, 2014) Reviewed by: Sunitha Townsend MD on 02/21/2022 4:39 PM PDT Approved by: Sunitha Townsend MD on 02/21/2022 4:39 PM PDT Station ID: [id number]
--- NOTE | 2022-02-21 16:45 | CT Report ---
PROCEDURE: Abdomen/Pelvis W INDICATIONS: anemia, ? metastatic cancer CONTRAST: IV CONTRAST: Optiray 320 ml: 100 PO CONTRAST: *NO PO CONTRAST TECHNIQUE: After the administration of IV contrast, 5 mm thick sections acquired from the diaphragms to the symp hysis. 5 mm thick coronal and sagittal reformats were acquired. For radiation dose reduction, the f ollowing was used: automated exposure control, adjustment of mA and/or kV according to patient size. COMPARISON: None. FINDINGS: Image quality: Excellent. ABDOMEN: Lung bases: Multiple suspicious-appearing pulmonary nodules and masses are noted in visualized bilate ral lower lung velazquez most prominent in right lower lobe and measures up to 1.9 x 2.1 cm in size seri es 4 image 4. Heart size is mildly enlarged, small amount of pericardial effusion is seen. Moderate a therosclerotic disease is also noted in coronary vessels. Solid organs: Liver is enlarged with mild to moderate hepatic steatosis. Tiny hypodensity involving p osterior segment right hepatic lobe measures 3 mm in size is seen series 3 image 16 and is too small to characterize. Spleen is normal in size and enhancement. Gallbladder is within normal limits. Bili cammy system is non dilated. Pancreas enhances normally. No adrenal nodules. Kidneys demonstrate nor mal size and enhancement, without hydronephrosis. Multiple fairly well-circumscribed hypodensities a re seen scattered in bilateral renal cortex and measures up to 1.7 cm in size in anterior cortex of m id pole right kidney likely represent renal cysts. Peritoneum and bowel: Bowel loops demonstrate normal wall thickness and caliber. Appendix is visual ized and is within normal limits. No free fluid or air. Nodes and vessels: No retroperitoneal or mesenteric adenopathy by size criteria. Aorta and inferior vena cava are normal in size. Mild to moderate atherosclerotic disease in abdominal aorta is seen. Miscellaneous: No ventral hernias. PELVIS: Genitourinary: Bladder wall thickness is normal. Miscellaneous: No inguinal hernias or adenopathy. Bones: 8 mm sclerotic focus is noted in right sacrum series 3 image 59.. No vertebral body compressi on fractures. Significant degenerative endplate changes are noted at L2-3 through L4-5 levels. IMPRESSION: 1. Please refer to CT of chest report for evaluation of bilateral lung velazquez. 2. Tiny 3 mm hypodensity in right hepatic lobe and is too small to characterize. Hepatomegaly and hep atic steatosis. 3. No abdominal or pelvic lymphadenopathy. 4. Multiple well-circumscribed hypodensities in bilateral renal parenchyma likely represent renal cys ts. No hydronephrosis 5. No bowel obstruction or abnormal bowel wall thickening. Normal appendix. No free fluid of free air . 6. Focal sclerosis involving right sacrum which could represent benign process such as bone island. M etastatic bony lesion cannot be entirely excluded. Follow-up study is recommended. Reviewed by: Artur Gomes MD on 02/21/2022 4:44 PM PDT Approved by: Artur Gomes MD on 02/21/2022 4:44 PM PDT Station ID: [id number]
[2022-02-21 17:42] VITALS: BP 115/71
== END 2022-02-21 17:41 | disposition home or self-care (01) ==
LOC: ED 13:27
DX: K11.1 Hypertrophy of salivary gland (principal); D64.89 Other specified anemias; K92.1 Melena; J98.4 Other disorders of lung; E11.22 Type 2 diabetes mellitus with diabetic chronic kidney disease; I12.9 Hypertensive chronic kidney disease with stage 1 through stage 4 chronic kidney disease, or unspecified chronic kidney disease; N18.30 Chronic kidney disease, stage 3 unspecified; Z79.84 Long term (current) use of oral hypoglycemic drugs
CPT/HCPCS: 36415; 70450; 71045; 71260; 74177; 80053; 82272; 83690; 83880; 84436; 84443; 84484; 85025; 93005; 99284; Q9967; 82270